=== PATIENT | female | born 1975 | race Caucasian/White ===

== ENCOUNTER 2024-09-13 06:24 | Day surgery (SDC) | payer BC ==
[~2024-09-13] VITALS: Ht 167.6 cm; Wt 144.2 kg
[2024-09-13] MEDS ORDERED: PROPOFOL 200MG/ 20ML VIAL (DIPRIVAN) IV ONE (09:06)
[2024-09-13 12:04] VITALS: O2SAT 100
[2024-09-13 14:00] VITALS: BP_SYST 123; PULSE 83; RESP 20
== END 2024-09-13 11:05 | disposition home or self-care (01) ==
LOC: SDS 06:24 → SMU 06:30 → SDS 11:05
PROVIDERS: ATTEND Internal Medicine Gastroenterology
DX: D50.9 Iron deficiency anemia, unspecified (principal); K29.50 Unspecified chronic gastritis without bleeding; I51.7 Cardiomegaly; E66.01 Morbid (severe) obesity due to excess calories; Z98.891 History of uterine scar from previous surgery; Z98.84 Bariatric surgery status; Z91.040 Latex allergy status; Z79.899 Other long term (current) drug therapy
CPT/HCPCS: 43239; 71045; 93005; 88305; 88312; 88313; J2704